=== PATIENT | female | born 1980 | race Caucasian/White ===

== ENCOUNTER → 2023-11-14 | Outpatient (CLI) | payer MEDICARE ==
[2023-11-14 15:26] LABS: BASO # 0.1 10^3/uL (0.0-0.2); BASO % 0.6 % (0.0-1.0); EOS # 0.2 10^3/uL (0.0-0.5); EOS % 1.4 % (0.0-3.0); HEMATOCRIT 41.1 % (36.0-47.0); HEMOGLOBIN 13.5 g/dl (12.0-15.5); LYMPH # 2.5 10^3/uL (1.5-5.0); LYMPH % 22.3 % (24.0-44.0); MEAN CORPUSCULAR HEMOGLOBIN 29.6 pg (27.0-33.0); MEAN CORPUSCULAR HGB CONC 32.8 g/dl (32.0-36.5); MEAN CORPUSCULAR VOLUME 90.1 fl (80.0-96.0); MONO # 0.8 10^3/uL (0.0-0.8); MONO % 7.5 % (2.0-8.0); NEUTROPHILS # 7.5 10^3/uL (1.5-8.5); NEUTROPHILS % 67.7 % (36.0-66.0); PLATELET COUNT, AUTOMATED 258 10^3/uL (150-450); RED BLOOD COUNT 4.56 10^6/uL (4.00-5.40); WHITE BLOOD COUNT 11.1 10^3/uL (4.0-10.0)
[2023-11-14 15:31] LABS: ALBUMIN 3.4 G/DL (3.2-5.2); ALKALINE PHOSPHATASE 122 U/L (46-116); ALT/SGPT 94 U/L (7.0-40); AST/SGOT 58 U/L (<34); BILIRUBIN,TOTAL 0.5 MG/DL (0.3-1.2); BLOOD UREA NITROGEN 9 MG/DL (9-23); CALCIUM LEVEL 9.6 MG/DL (8.5-10.1); CARBON DIOXIDE LEVEL 26 MMOL/L (20-31); CHLORIDE LEVEL 108 MMOL/L (98-107); CREATININE FOR GFR 0.61 MG/DL (0.55-1.30); GLOMERULAR FILTRATION RATE > 60.0 (>58); GLUCOSE, FASTING 90 MG/DL (60-100); POTASSIUM SERUM 4.1 MMOL/L (3.5-5.1); RHEUMATOID FACTOR QUANT 6.8 IU/ML (<14); SODIUM LEVEL 139 MMOL/L (136-145); TOTAL PROTEIN 6.1 G/DL (5.7-8.2)
[2023-11-14 15:33] LABS: THYROID STIMULATING HORMONE 1.344 uIU/ML (0.55-4.78); TOTAL 25(OH) VITAMIN D 21.7 NG/ML (20.0-100.0)
[2023-11-14 15:34] LABS: ERYTHROCYTE SEDIMENTATION RATE 28 mm/hr (0-20)
[2023-11-17 11:33] LABS: ANA SCREEN, IFA NEGATIVE (NEGATIVE)
== END ==
LOC: M PLALAB 13:46
PROVIDERS: ATTEND Psychiatry & Neurology Neurology
DX: R51.9 Headache, unspecified (principal)